=== PATIENT | female | born 1945 | race Hispanic/Latino ===

== ENCOUNTER 2018-02-24 12:18 | Observation (INO) | payer OTHER ==
[~2018-02-24] VITALS: Ht 170.2 cm; Wt 86.2 kg
--- OUTSIDE RECORDS SUMMARY | 2018-02-24 12:22 | XMS REPORT | Summary of Care ---
Author Author [facility] [place] Organization [facility] [place] Address Unknown Phone Unavailable Encounter HQ Encntr_alimaulik(FIN) [id number] Date(s): 06/19/17 - 06/19/17 [facility] [place] [address] [place] [address] [phone] Encounter Diagnosis Encounter for screening mammogram for malignant neoplasm of breast (Final) - 06/25/17 Encounter for screening for osteoporosis (Final) - Asymptomatic menopausal state (Final) - Discharge Disposition: Home or Self Care Attending Physician: Douglas Norman MD Vital Signs No data available for this section Problem List No data available for this section Allergies, Adverse Reactions, Alerts No data available for this section Medications No data available for this section Results No data available for this section Immunizations No data available for this section Procedures No data available for this section Social History No data available for this section Assessment and Plan No data available for this section
--- OUTSIDE RECORDS SUMMARY | 2018-02-24 12:22 | XMS REPORT | Continuity of Care Document ---
Author Author [facility] Interface Address Unknown Phone Unavailable Problems Problem Status Onset Date Classification Date Reported Comments Source Encounter for screening mammogram for malignant neoplasm of breast 06/26/2017 09/25/2017 [facility] [place] Encounter for screening for osteoporosis 09/25/2017 [facility] [place] Asymptomatic menopausal state 09/25/2017 [facility] [place] Medications Medication Details Route Status Patient Instructions Ordering Provider Order Date Source Allergies, Adverse Reactions, Alerts Substance Category Reaction Severity Reaction type Status Date Reported Comments Source Immunizations Immunization Date Given Site Status Last Updated Comments Source Results Order Name Results Value Reference Range Date Interpretation Comments Source Breast Mammo Scrn TODD incl CAD MA Breast Mammo Scrn TODD incl CAD MA BILATERAL DIGITAL SCREENING MAMMOGRAM WITH CAD: 06/19/2017 CLINICAL: Encounter For Screening Mammogram For Malignant Neoplasm Of Breast/Z12.31. Current study was evaluated with a Computer Aided Detection (CAD) system. COMPARISON:No prior exams were available for comparison. TECHNIQUE: Mammographic views were obtained using digital acquisition. Current study was also evaluated with a Computer Aided Detection (CAD) system. FINDINGS: There are scattered fibroglandular densities in both breasts. No significant masses, calcifications, or other findings are seen in either breast. IMPRESSION: NEGATIVE RECOMMENDATION:There is no mammographic evidence of malignancy. A 1 year screening mammogram is recommended.(06/20/2018) Professional services are provided by the [facility]. Dr. Ellen Camarena D.O. ht/penrad:06/19/2017 13:52:34 Structural Design Engineer(s): [place](Elaine)(M), [facility] letter sent: BI-RADS 1/2 Mammogram BI-RADS: 1 Negative 06/19/2017 - - Read by: Ellen Camarena DO Dictated Date/time: 06/19/17 13:52 Electronically Signed by: Ellen Camarena DO 06/19/17 13:52 FINAL REPORT OPICarol Smith Bone Density DXA [employer] MA Bone Density DXA [employer] MA BONE DENSITY ASSESSMENT: 06/19/2017 CLINICAL DATA: Post menopausal. Encounter For Screening For Osteoporosis/Z13.820 FINDINGS: Bone density evaluation was performed 06/19/2017 on the right femur neck using a Hologic unit. The BMD average for the exam is 0.917 g/cm2. The T-score is 0.60 and the Z-score is 2.50. This matches the World Health Organization's criteria for normal bone density and places the patient within normal limits of fracture risk. An additional bone density evaluation was performed 06/19/2017 on the left femur neck using a Hologic unit. The BMD average for the exam is 0.869 g/cm2. The T- score is 0.20 and the Z-score is 2.00. This matches the World Health Organization's criteria for normal bone density and places the patient within normal limits of fracture risk. An additional bone density evaluation was performed 06/19/2017 on the right hip using a Hologic unit. The BMD average for the exam is 1.029 g/cm2. The T-score is 0.70 and the Z-score is 2.30. This matches the World Health Organization's criteria for normal bone density and places the patient within normal limits of fracture risk. An additional bone density evaluation was performed 06/19/2017 on the left hip using a Hologic unit. The BMD average for the exam is 1.025 g/cm2. The T-score is 0.70 and the Z-score is 2.20. This matches the World Health Organization's criteria for normal bone density and places the patient within normal limits of fracture risk. An additional bone density evaluation was performed 06/19/2017 on the AP L1-L2 region of spine using a Hologic unit. The BMD average for the exam is 1.101 g/cm2. The T-score is 1.10 and the Z-score is 3.10. This matches the World Health Organization's criteria for normal bone density and places the patient within normal limits of fracture risk. IMPRESSION: BONE DENSITY WITHIN NORMAL LIMITS Patient is at normal risk for fracture. Dr. Ellen daigle/arturo:06/19/2017 13:52:22 Structural Design Engineer(s): Florencia LYNN)(M), [facility] 06/19/2017 - - Read by: Ellen Camarena DO Dictated Date/time: 06/19/17 13:52 Electronically Signed by: Ellen Camarena DO 06/19/17 13:52 FINAL REPORT RUBY Smith Vital Signs Vital Sign Value Date Comments Source Encounters Location Location Details Encounter Type Encounter Number Reason For Visit Attending Provider ADM Date DC Date Status Source [facility] [place] Out[facility] Diag Services [id number] Douglas Norman 06/19/2017 06/20/2017 RU[facility] Smith Procedures Procedure Code Date Perfomer Comments Source
--- OUTSIDE RECORDS SUMMARY | 2018-02-24 12:42 | XMS REPORT ---
[facility] Address Unknown Phone Unavailable Care Team Providers Care Plane Captain Name Role Phone JOSE RAFAEL COLUNGACathryn QUINN Unavailable Unavailable Problems This patient has no known problems. Allergies, Adverse Reactions, Alerts This patient has no known allergies or adverse reactions. Medications This patient has no known medications. Results Test Description Test Time Test Comments Text Results Atomic Results Result Comments CT BRAIN WO 2018-02-24 12:16:00 [place] [address] Patient Name: JOSE PARK MR #: [id number] : 1945 Age/Sex: 72/F Req #: [id number] [facility] Physician: Ordered by: BHARAT PARIKH MD Report #: [id number] Location: [place] Room/Bed: Procedure: [id number] CT/CT BRAIN WO Exam Date: Exam Time: REPORT STATUS: Signed CT BRAIN WO HISTORY: Stroke COMPARISON: None. TECHNIQUE: N oncontrast axial scans were obtained from skull base to the vertex. Coronal and sagittal reconstructions obtained from the axial data. One or more of the following dose reduction techniques were used: Automated exposure control, adjustment of the mA and/or kV according to patient size, and/or utilization of iterative reconstruction technique. Beam hardening artifacts obscure some details. DISCUSSION: Scalp/Skull: Unremarkable. Brain sulci: Appropriate for patient's age. Ventricles: Normal in size and configuration. No hydrocephalus. Extra-axial spaces: No masses or fluid collections. Mild carotid siphon calcifications are present. Parenchyma: Mild periventricular white matter hypodensities are likely chronic microvascular ischemic changes. Otherwise, no masses, hemorrhage, or large vascular territory acute infarct. Dural sinuses: No abnormal densities. Sellar/Suprasellar region: Enlarged partially empty sella is present.. Skull base: Intact. Incidental findings: Minimal scattered paranasal sinus mucosal thickening is partially visualized. IMPRESSION: No acute intracranial abnormalities. Mild supratentorial chronic microvascular ischemic change. Signed by: Dr. David Sumner M.D. on 02/24/2018 12:20 PM Dictated By: DAVID SUMNER MD 1220 Transcribed By: VICKI on 02/24/18 1220 COPY TO: BHARAT PARIKH MD
[2018-02-24] MEDS ORDERED: ASPIRIN 81 MG CHEW TAB PO ONE (12:45)
[2018-02-24 13:07] LABS: BASOPHILS # (AUTO) 0.1 (0.0-0.1); BASOPHILS % 0.4 % (0.0-1.0); EOSINOPHILS # (AUTO) 0.2 (0.0-0.4); EOSINOPHILS % 1.7 % (0.0-6.0); HEMATOCRIT 39.8 % (34.2-44.1); HEMOGLOBIN 12.8 g/dL (12.0-16.0); LYMPHOCYTES # (AUTO) 2.4 (1.0-3.2); LYMPHOCYTES % 17.8 % (18.0-39.1); MEAN CORPUSCULAR HEMOGLOBIN 29.3 pg (28-32); MEAN CORPUSCULAR HGB CONC 32.2 g/dL (31-35); MEAN CORPUSCULAR VOLUME 91.1 fL (81-99); MONOCYTES # (AUTO) 0.7 (0.2-0.8); MONOCYTES % 5.2 % (4.4-11.3); NEUTROPHILS # (AUTO) 10.1 (2.1-6.9); NEUTROPHILS % 74.5 % (38.7-80.0); PLATELET COUNT 403 x10e3/uL (140-360); RED BLOOD COUNT 4.37 x10e6/uL (3.6-5.1); RED CELL DISTRIBUTION WIDTH 13.4 % (11.7-14.4)
[2018-02-24 13:22] LABS: ALBUMIN 3.7 g/dL (3.5-5.0); ANION GAP 10.8 mmol/L (8-16); CALCIUM 9.8 mg/dL (8.4-10.2); CREATININE, SERUM 1.12 mg/dL (0.57-1.11); POTASSIUM 3.8 mmol/L (3.5-5.1)
[2018-02-24 13:28] LABS: CREATINE KINASE MB 0.6 ng/mL (0-5.0)
[2018-02-24 19:13] VITALS: BP 112/70
== END 2018-02-24 19:30 | disposition left against medical advice (07) ==
LOC: ER 12:39 → ERHOLD 14:58
PROVIDERS: ADMIT Internal Medicine; ATTEND Internal Medicine
DX: R47.81 Slurred speech (principal); R41.82 Altered mental status, unspecified; Z88.0 Allergy status to penicillin
CPT/HCPCS: 36415; 80053; 82550; 82553; 84484; 85025; 93005; 93880; 99284; G0378

== ENCOUNTER → 2018-02-24 | Outpatient (CLI) | payer OTHER ==
[~2018-02-24] MED LIST: REGADENOSON 0.4 MG/5 ML SYR IV ONE
--- NOTE | 2018-02-24 12:23 | Diagnostic Imaging Report ---
CT BRAIN WO HISTORY: Stroke COMPARISON: None. TECHNIQUE: Noncontrast axial scans were obtained from skull base to the vertex. Coronal and sagittal reconstructions obtained from the axial data. One or more of the following dose reduction techniques were used: Automated exposure control, adjustment of the mA and/or kV according to patient size, and/or utilization of iterative reconstruction technique. Beam hardening artifacts obscure some details. DISCUSSION: Scalp/Skull: Unremarkable. Brain sulci: Appropriate for patient's age. Ventricles: Normal in size and configuration. No hydrocephalus. Extra-axial spaces: No masses or fluid collections. Mild carotid siphon calcifications are present. Parenchyma: Mild periventricular white matter hypodensities are likely chronic microvascular ischemic changes. Otherwise, no masses, hemorrhage, or large vascular territory acute infarct. Dural sinuses: No abnormal densities. Sellar/Suprasellar region: Enlarged partially empty sella is present.. Skull base: Intact. Incidental findings: Minimal scattered paranasal sinus mucosal thickening is partially visualized. IMPRESSION: No acute intracranial abnormalities. Mild supratentorial chronic microvascular ischemic change. Signed by: Dr. David Sumner M.D. on 02/24/2018 12:20 PM
--- NOTE | 2018-02-24 19:23 | Cardiology Report ---
DATE OF STUDY: February 24, 2018 LEXISCAN STRESS TEST, MYOCARDIAL PERFUSION INTERPRETING AND SUPERVISING PHYSICIAN: Dr. Henry Faustin, interventional cardiology. PROCEDURE INDICATION: Chest pain. INTERPRETATION: At rest, heart rate was 65 and blood pressure 119/82. Resting EKG shows normal sinus rhythm with nonspecific repolarization abnormalities. After Lexiscan was administered, heart rate nati to 90 beats per minute and blood pressure increased to 130/80. There were no significant ST changes or arrhythmias throughout stress or recovery. Myocardial perfusion reveals normal rest and stress perfusion. Gated images demonstrate preserved left ventricular systolic function, normal regional wall motion, and left ventricular ejection fraction of 67%. CONCLUSION: 1. Normal hemodynamic response to Lexiscan stress. 2. Normal electrocardiographic response to Lexiscan stress. 3. Normal myocardial perfusion at rest and stress. 4. Preserved left ventricular systolic function with left ventricular ejection fraction of 67%. Job#: [id number]
== END ==
LOC: NM 08:23
PROVIDERS: ATTEND Internal Medicine Cardiovascular Disease
DX: R07.9 Chest pain, unspecified (principal); R00.2 Palpitations; I20.9 Angina pectoris, unspecified; I70.219 Atherosclerosis of native arteries of extremities with intermittent claudication, unspecified extremity; R94.31 Abnormal electrocardiogram [ECG] [EKG]
CPT/HCPCS: 36415; 70450; 78452; 82948; 93017; A9502; J2785